=== PATIENT | female | born 1990 ===

== ENCOUNTER 2024-12-03 11:05 | Emergency (ER) | payer MEDICAID, OTHER ==
[~2024-12-03] VITALS: Ht 160 cm; Wt 54.0 kg
[2024-12-03 11:09] VITALS: O2SAT 100
[2024-12-03 11:11] VITALS: BP 114/78; PULSE 73; RESP 18; TEMP 36.9; O2SAT 100
== END 2024-12-03 11:26 | disposition home or self-care (01) ==
LOC: ER 11:05
DX: S86.119A Strain of other muscle(s) and tendon(s) of posterior muscle group at lower leg level, unspecified leg, initial encounter (principal); X58.XXXA Exposure to other specified factors, initial encounter; Y93.02 Activity, running; Y92.89 Other specified places as the place of occurrence of the external cause; Y99.8 Other external cause status
CPT/HCPCS: 99282; 99283